=== PATIENT | female | born 1950 | race Caucasian/White ===

== ENCOUNTER 2023-10-24 16:19 | Emergency (ER) | payer OTHER ==
[2023-10-24 16:30] VITALS: PULSE 78; BMI 44.9
[2023-10-24] MEDS ORDERED: LIDOCAINE 4% PATCH TP ONE (17:14)
[2023-10-24] MEDS: LIDOCAINE 4% PATCH TP ONE (17:16)
[2023-10-24 17:33] VITALS: BP 145/90; RESP 12; TEMP 98.8
[2023-10-25] MEDS ORDERED: LIDOCAINE PATCH REMOVAL MC SCH (06:00)
== END 2023-10-24 19:52 | disposition home or self-care (01) ==
LOC: JER 16:19
DX: U07.1 COVID-19 (principal); M25.561 Pain in right knee; M25.562 Pain in left knee; W01.0XXA Fall on same level from slipping, tripping and stumbling without subsequent striking against object, initial encounter; Y92.009 Unspecified place in unspecified non-institutional (private) residence as the place of occurrence of the external cause
CPT/HCPCS: 70450-TC; 72125-TC; 73562-TC-LT-FY; 73562-TC-RT-FY; 93005; 93010; 99284-25